=== PATIENT | female | born 1995 | race Caucasian/White ===

== ENCOUNTER → 2016-12-01 | Outpatient (CLI) | payer OTHER ==
[~2016-12-01] MED LIST: CLC100 PO; IRON INFUSION INJ; MACROBID PO; MCRB100 PO; MTR600X PO; OXYC-57 PO; PRENTAB26 PO; [UNRECOGNIZED DRUG - CODE] PO
== END | disposition home or self-care (01) ==
LOC: C.LABSPEC 17:34
PROVIDERS: ATTEND Obstetrics & Gynecology
DX: O09.33 Supervision of pregnancy with insufficient antenatal care, third trimester (principal)

== ENCOUNTER 2016-12-22 04:54 | Inpatient (IN) | payer OTHER ==
--- NOTE | 2016-12-19 10:35 | PAT Medication Instructions ---
Service Date Dec 19, 2016. Current Home Medication List [Iron Infusion], 1 DOSE INJ WEEKLY [Macrobid], 1 TAB PO BID Medication Instructions For Your Scheduled Surgery - Take the following medications the morning of surgery with a sip of water OTHERWISE NOTHING TO EAT OR DRINK AFTER MIDNIGHT: [Macrobid], 1 TAB PO BID - Take the following medications as scheduled the night before surgery: [Macrobid], 1 TAB PO BID If you have any questions please call us at [phone] (Ekta Alex PA-C ) or [phone] or [phone]
[2016-12-19 11:40] LABS: BASO % 0.2 %; BASO ABS # 0.03 K/uL (0-0.2); EOS % 0.6 %; HEMATOCRIT 34.7 % (37-47); IG% 1.3 %; LYMPH % 20.7 %; LYMPH ABS # 3.18 K/uL (1.2-3.4); MEAN CELL VOLUME 74.6 fL (80-100); MEAN CORPUSCULAR HEMOGLOBIN 23.4 pg (25-34); MEAN CORPUSCULAR HGB CONC 31.4 g/dl (32-36); MEAN PLATELET VOLUME 8.6 fL (7.4-10.4); NEUT % 68.2 %; PLATELET COUNT 332 K/uL (130-400); RED BLOOD COUNT 4.65 M/uL (4.2-5.4); WHITE BLOOD COUNT 15.39 K/uL (4.8-10.8)
[2016-12-19 11:47] LABS: URINE APPEARANCE CLEAR (CLEAR); URINE BILIRUBIN NEG (NEG); URINE COLOR YELLOW; URINE EPITHELIAL CELL AUTO >30 /lpf (0-5); URINE NITRITE NEG (NEG); URINE PH 6.5 (4.5-7.5); URINE SPECIFIC GRAVITY 1.022 (1.000-1.030); UROBILINOGEN NEG (NEG)
[2016-12-19 11:51] LABS: MANUAL MICROSCOPIC REQUIRED? NO; REVIEW REQ? NO
[2016-12-19 12:18] LABS: ANISOCYTOSIS PRESENT; COMPLETE YES; MICROCYTOSIS PRESENT
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
[~2016-12-22] VITALS: Ht 152.4 cm; Wt 77.3 kg
[2016-12-22] VITALS (14 sets, daily range): BP systolic 94–115; BP diastolic 61–75; PULSE 68–94; TEMP 36.6–36.7; O2SAT 96–99; Ht 152.4 cm; Wt 77.3 kg
[~2016-12-22 04:54] MED LIST changes: -CLC100 PO; -MCRB100 PO; -MTR600X PO; -OXYC-57 PO; -PRENTAB26 PO; -[UNRECOGNIZED DRUG - CODE] PO
[2016-12-22] MEDS ORDERED: LACTATED RINGER'S 1000ML 1,000 ML IV ONE (05:00)
[2016-12-22] MEDS ORDERED: CEFAZOLIN IV 2,000 MG in DEXTROSE 5% 50ML 50 ML IV SCH (06:00)
[2016-12-22] MEDS ORDERED: CITRIC ACID/SODIUM CITRATE 15 ML UDC PO SCH (06:00)
[2016-12-22] MEDS ORDERED: PRENTAB26 PO (06:00)
[2016-12-22] MEDS ORDERED: LACTATED RINGER'S 1000ML 1,000 ML IV SCH (06:00)
[2016-12-22 06:13] LABS: BENZODIAZEPINE, URINE NEG (NEG); COCAINE,URINE NEG (NEG); PHENCYCLIDINE, URINE NEG (NEG)
--- NOTE | 2016-12-22 08:57 | History & Physical Bridge Note ---
H&P Re-Evaluation Bridge Note: I have examined the patient, reviewed the History & Physical and in the interval since the performance of the History & Physical I have noted the following changes of clinical significance: No changes noted
[2016-12-22] MEDS ORDERED: PHENYLEPHRINE HCL INJ 10 MG/ML VIAL ONE (09:27)
[2016-12-22] MEDS ORDERED: FENTANYL CITRATE INJ 50 MCG/1 ML 2 ML VIAL ONE (09:27)
[2016-12-22] MEDS ORDERED: OXYTOCIN INJ 10 UNITS/ML VIAL ONE ×2 (09:27→10:09)
[2016-12-22] MEDS ORDERED: MoRPHine SULFATE PF 1 MG/ML 10 ML AMP/VIAL ONE (09:27)
[2016-12-22] MEDS ORDERED: NALBUPHINE HCL INJ 10 MG/ML AMP IV PRN (10:15)
[2016-12-22] MEDS ORDERED: NALOXONE HCL INJ 1 MG in SODIUM CHLORIDE 0.9% 1000ML 1,000 ML IV PRN (10:15)
[2016-12-22] MEDS ORDERED: NO NARCOTICS OR SEDATIVES SCH (10:15)
[2016-12-22] MEDS ORDERED: ONDANSETRON INJ 2 MG/ML 2 ML VIAL IV PRN (10:15)
[2016-12-22] MEDS ORDERED: LACTATED RINGER'S 1000ML 500 ML IV PRN (10:15)
[2016-12-22] MEDS ORDERED: SODIUM CHLORIDE 0.9% 1000ML 1,000 ML IV PRN (10:15)
[2016-12-22] MEDS ORDERED: MoRPHine SULFATE 2 MG/ML CARP IV PRN (10:15)
[2016-12-22] MEDS ORDERED: NALOXONE HCL INJ 0.08 MG in SYRINGE 1.8 ML IV PRN (10:15)
[2016-12-22] MEDS ORDERED: EpHEDrine SULFATE INJ 50 MG/ML AMP IV PRN (10:15)
[2016-12-22] MEDS ORDERED: MoRPHine SULFATE PF 1 MG/ML 10 ML AMP/VIAL EPI PRN (10:15)
[2016-12-22] MEDS ORDERED: KETOROLAC TROMETHAMINE 30 MG/ML VIAL IV. PRN (10:15)
[2016-12-22] MEDS ORDERED: NALOXONE HCL 0.4 MG/1 ML VIAL/CARP IV PRN (10:15)
[2016-12-22] MEDS ORDERED: OXYTOCIN INJ 20 UNITS in LACTATED RINGER'S 1000ML 1,000 ML IV SCH ×2 (10:35→21:15)
--- NOTE | 2016-12-22 10:39 | [facility] Post Operative Brief Note ---
Immediate Operative Summary Operative Date Dec 22, 2016. Pre-Operative Diagnosis IUP at 39 weeks hx c/s x2 desires sterilization Post-Operative Diagnosis same Procedure(s) Performed repeat LTCS Surgeon Konrad Financial Compliance Examiner Surgeon(s) Reza Rosario, PGY 1 Estimated Blood Loss 600cc Findings viable male infant, apgars 8/8. uterus was adhesed to the anterior abdominal wall. maria guadalupe very thin, omentum adhesed to fundus as well. ovs nl bilaterally, tubes nl. Fluids (cc crystalloids) 2500cc Specimens tubal segments Drains troncoso Anesthesia spinal Disposition L&D
[2016-12-22] MEDS ORDERED: DIPHTHERIA/TETANUS/PERTUSSIS 0.5 ML SYR/VIAL IM. ONE (10:45)
[2016-12-22] MEDS ORDERED: SENNA 8.6 MG TAB PO PRN (10:45)
[2016-12-22] MEDS ORDERED: MAGNESIUM HYDROXIDE SUSP 30 ML UDC PO PRN (10:45)
[2016-12-22] MEDS ORDERED: HYDROCORTISONE ACETATE 25 MG SUPP PR PRN (10:45)
[2016-12-22] MEDS ORDERED: LANOLIN OINT EXT PRN ×2 (10:45)
[2016-12-22] MEDS ORDERED: BENZOCAINE 20% AER SPR 82.5 GM CAN EXT PRN (10:45)
[2016-12-22] MEDS ORDERED: SUPERCREAM 0.870 % 15GM JAR EXT PRN (10:45)
--- NOTE | 2016-12-22 10:52 | Medical Student: [facility] ---
Immediate Operative Summary Operative Date Dec 22, 2016. Pre-Operative Diagnosis IUP [id number]. 2 prior C-sections. Desires BTL Post-Operative Diagnosis Same Procedure(s) Performed Low transverse Bilateral tubal ligation Surgeon Dr. Silvestre [employer] Driver Surgeon(s) Dr. Rosario Estimated Blood Loss 600cc Findings Viable male . Uterus adhesed to the anterior abdominal wall. Normal ovaries and fallopian tubes. Fluids (cc crystalloids) 2500cc Specimens Cord blood Placenta Bilateral fallopian tubes sections Drains Burks catheter Anesthesia Spinal Complication(s) None Disposition L&D
--- NOTE | 2016-12-22 11:23 | Anesthesiology Progress Note ---
Anesthesia Post Op Note Date & Time Dec 22, 2016 at 11:23 Notes Mental Status: alert / awake / arousable, participated in evaluation Pt Amnestic to Procedure: Yes Nausea / Vomiting: adequately controlled Pain: adequately controlled Airway Patency, RR, SpO2: stable & adequate BP & HR: stable & adequate Hydration State: stable & adequate Neuraxial Anesthesia: was administered, sensory block is resolving Anesthetic Complications: no major complications apparent
[2016-12-22] MEDS: DiphenhydrAMINE HCL 50 MG/ML VIAL IV PRN ×2 (11:43→23:53)
--- NOTE | 2016-12-22 17:21 | OPERATIVE REPORT ---
DATE OF OPERATION: 12/22/2016 PREOPERATIVE DIAGNOSES: 1. Intrauterine at 39 weeks. 2. History of previous section x2. 3. Desires permanent surgical sterilization. POSTOPERATIVE DIAGNOSES: Same. PROCEDURE: Primary repeat lower transverse section with modified bilateral Joseph tubal ligation. SURGEON: Dr. Shea Silvestre. ASSEMBLY INSTRUCTIONS WRITER: Reza Rosario, PGY1 and Lucía Hall, MS3. ANESTHESIA: Spinal. ESTIMATED BLOOD LOSS: 600 mL. FLUIDS: 2516. URINE OUTPUT: 75 mL of clear yellow urine drained from the bladder at the end of the procedure. INDICATIONS: Trisha is a 5, para 2-0-2-2, who presents at 39 weeks for repeat section. She also desires permanent surgical sterilization. FINDINGS: At the time of surgery revealed a uterus that was adhesed to the anterior abdominal wall. I actually made a hysterotomy incision with my thumb as the lower uterine segment was quite thin. Fluid was clear. Delivery of viable male infant with Apgars of 8 and 8. Ovaries and tubes were normal bilaterally. COMPLICATIONS: None. DRAINS: Burks. DISPOSITION: To recovery room in stable condition. DESCRIPTION OF PROCEDURE: The patient was taken to the operating room, where she was identified verbally and by bracelet. She was seated on the operating table, where a spinal anesthetic was placed by anesthesia. She was placed in dorsal supine position with a leftward tilt. A Burks catheter was placed sterilely. She was prepped and draped in normal sterile fashion. Timeout was held identifying correct patient and procedure, preoperative antibiotics and positioning. A Pfannenstiel skin incision was made with the knife and taken down to the underlying layer of fascia with the knife and the Bovie electrocautery. The fascia was incised with a knife in the midline and taken out laterally with scissors. The superior edge of the fascial incision was grasped, elevated and the underlying layer of rectus muscle was taken off bluntly and with scissors. This was done similarly on the inferior edge of the fascia. The rectus muscles should have diastasis and I thought that I was at the peritoneum and so, was in the process of trying to enter the peritoneum with my finger bluntly and then all of a sudden, there were amniotic membranes visible. On reassessment of the situation, it was found that I was actually at the uterus. It was adhesed to the anterior abdominal wall. I was able to find borders to identify the uterus. Below where the membranes were prolapsing through the lower uterine segment, I was able to make a bladder flap sharply with scissors and then this was pushed down and a bladder flap was created. Given that I was above the bladder, I extended the hysterotomy incision that I had made with my fingers. The amniotic fluid sac was ruptured for clear fluid and the baby was delivered through this atraumatically. There was no nuchal cord. The nose and mouth were bulb suctioned. The rest of the was then delivered without difficulty. The nose and mouth were again bulb suctioned. The cord was clamped and cut. The was handed off to waiting stone engraver for drying and attention. Cord blood and segment were obtained. Full evaluation of the hysterotomy incision was again performed. It was noted that the bladder was down well from the incision. The edges of the incision were readily visible and so, the hysterotomy incision was reapproximated with 0 Vicryl in a running locked layer. A sponge was then placed over this. Attention was then turned to where the uterine fundus was adhered to the anterior abdominal wall. I was able to place my finger underneath this very thick adhesion. There was no bowel or omentum involved with this and I was able to go through this very thick adhesion carefully with Bovie electrocautery until the uterine fundus was freed. I was then able to exteriorize the uterus. There were some slight adhesions of the omentum to the fundus, which were taken down using cautery. A bilateral modified [place] tubal ligation was then performed first on the right and then the left. In a similar fashion, a knuckle of tube was grasped with a Coni. A suture of 2-0 plain gut was placed around this knuckle of tube and tied and then another suture was placed below this. The knuckle of tube was removed using scissors. The base and tubes were cauterized on both sides similarly. Attention was then returned to my incision, which was hemostatic, but an area that had been denuded from taking out the adhesions of the uterus to the anterior abdominal wall was reapproximated with a [id number] suture of 0 Vicryl until hemostasis was assured of an entire area. The uterus was then reanteriorized. The tubal stumps were evaluated and the stitches were found to be intact. The incision was again evaluated and hemostasis was noted. A rectangled Interceed was then placed over this in the hopes of preventing readhesions of the uterus to the anterior abdominal wall. The muscles were then reapproximated with 0 Vicryl in several interrupted sutures. The fascia was reapproximated with 0 Vicryl meeting in the midline. The subcuticular tissue was copiously irrigated and bleeding was attended to with Bovie electrocautery and the skin was then closed with grady. All sponge, lap and needle counts were correct x2. The patient tolerated the procedure well and was taken to recovery room in stable condition. I attest to the content of the Intraoperative Record and any orders documented therein. Any exceptio ns are noted below.
[2016-12-22] MEDS: DOCUSATE SODIUM 100 MG CAP PO SCH (19:51)
[2016-12-22] MEDS: OXYTOCIN INJ 20 UNITS in LACTATED RINGER'S 1000ML 1,000 ML IV SCH (22:27)
[2016-12-23] VITALS (8 sets, daily range): BP systolic 97–115; BP diastolic 61–74; PULSE 86–98; TEMP 36.5–37; O2SAT 94–98
[2016-12-23] MEDS: OXYTOCIN INJ 20 UNITS in LACTATED RINGER'S 1000ML 1,000 ML IV SCH (02:27)
[2016-12-23] MEDS ORDERED: KETOROLAC TROMETHAMINE 30 MG/ML VIAL IV. PRN (03:30)
[2016-12-23] MEDS ORDERED: DiphenhydrAMINE HCL 50 MG/ML VIAL IV PRN (03:30)
[2016-12-23] MEDS ORDERED: ONDANSETRON INJ 2 MG/ML 2 ML VIAL IV PRN (03:30)
[2016-12-23] MEDS ORDERED: DC INTRASPINAL MORPHINE ONE (03:30)
[2016-12-23] MEDS: OXYCODONE/ACETAMINOPHEN 5-325 TAB PO PRN ×5 (04:08→23:15)
[2016-12-23] MEDS: IBUPROFEN 600 MG TAB PO PRN ×5 (04:08→23:14)
[2016-12-23 07:19] LABS: BASO % 0.1 %; BASO ABS # 0.02 K/uL (0-0.2); EOS % 1.1 %; HEMATOCRIT 31.9 % (37-47); IG% 0.4 %; LYMPH % 15.7 %; LYMPH ABS # 2.82 K/uL (1.2-3.4); MEAN CELL VOLUME 73.8 fL (80-100); MEAN CORPUSCULAR HEMOGLOBIN 23.8 pg (25-34); MEAN CORPUSCULAR HGB CONC 32.3 g/dl (32-36); MEAN PLATELET VOLUME 8.3 fL (7.4-10.4); MONO % 9.5 %; NEUT % 73.2 %; PLATELET COUNT 298 K/uL (130-400); RED BLOOD COUNT 4.32 M/uL (4.2-5.4); WHITE BLOOD COUNT 18.01 K/uL (4.8-10.8)
--- NOTE | 2016-12-23 07:24 | Progress Note ---
Subjective Dec 23, 2016. Subjective conversation w/ patient, physical exam Ambulation: ambulating normally Voiding: voiding difficulty (Troncoso removed overnight, no urination currently) Passing Gas: Yes Diet Tolerance: Regular Diet Lochia: Moderate (Given pitocin overnight and slowing down) Feeding Type: Breast Feeding Pain: Well controlled with Ibuprofen and Percocet Review of Systems Constitutional: No chills, No fever Respiratory: No cough, No shortness of breath Cardiac: No chest pain Breast: No breast pain Abdomen: No nausea, No pain, No vomiting Female : No dysuria Objective Vital Signs Date Time Temp Pulse Resp B/P Pulse Ox O2 Delivery O2 Flow Rate FiO2 12/23/16 03:40 37.0 98 16 115/72 97 Room Air 12/23/16 03:00 16 98 12/23/16 02:00 16 95 12/23/16 01:00 16 94 12/23/16 00:00 16 96 12/22/16 23:30 36.6 94 16 114/75 96 Room Air 12/22/16 23:30 96 Room Air 12/22/16 23:00 16 96 12/22/16 22:00 20 98 12/22/16 21:00 20 97 12/22/16 20:00 20 98 12/22/16 19:30 36.6 85 24 94/61 99 Room Air 12/22/16 19:00 16 99 12/22/16 18:00 20 99 12/22/16 17:00 18 98 12/22/16 16:00 36.6 82 18 107/67 96 Room Air 12/22/16 16:00 96 Room Air 12/22/16 16:00 18 96 12/22/16 15:00 16 99 12/22/16 14:00 16 97 12/22/16 14:00 36.7 82 16 115/71 97 Room Air 12/22/16 13:30 16 99 12/22/16 13:00 36.7 68 18 105/72 97 Room Air 12/22/16 13:00 99 Room Air Physical Exam General Appearance: WELL-APPEARING, WD/WN, NO APPARENT DISTRESS Respiratory/Chest: lungs clear, no respiratory distress Cardiovascular: regular rate, rhythm, no gallop, no murmur Abdomen: non tender, soft Fundus: Firm, Relation to Umbilicus (1cm below umbilicus) Incision Description: Clean, Dry & Intact Extremities: no calf tenderness Laboratory Results Last 24 Hours Test 12/23/16 07:07 White Blood Count 18.01 K/uL Red Blood Count 4.32 M/uL Hemoglobin 10.3 g/dL Hematocrit 31.9 % Mean Corpuscular Volume 73.8 fL Mean Corpuscular Hemoglobin 23.8 pg Mean Corpuscular Hemoglobin Concent 32.3 g/dl Platelet Count 298 K/uL Mean Platelet Volume 8.3 fL Neutrophils (%) (Auto) 73.2 % Lymphocytes (%) (Auto) 15.7 % Monocytes (%) (Auto) 9.5 % Eosinophils (%) (Auto) 1.1 % Basophils (%) (Auto) 0.1 % Neutrophils # (Auto) 13.20 K/uL Lymphocytes # (Auto) 2.82 K/uL Monocytes # (Auto) 1.71 K/uL Eosinophils # (Auto) 0.19 K/uL Basophils # (Auto) 0.02 K/uL RDW Standard Deviation 72.3 fL RDW Coefficient of Variation 27.4 % Immature Granulocyte % (Auto) 0.4 % Immature Granulocyte # (Auto) 0.07 K/uL Medications Current Inpatient Medications Medications (Trade) Dose Ordered Sig/Myron Route Start Time Stop Time Status Last Admin Dose Admin Ketorolac Tromethamine (Toradol Inj) 30 mg Q6H PRN IV. 12/23/16 03:30 12/27/16 03:29 Oxycodone/ Acetaminophen (Percocet 5-325mg Tab) 1 tab Q4H PRN PO 12/23/16 03:30 01/06/17 03:29 Oxycodone/ Acetaminophen (Percocet 5-325mg Tab) 2 tab Q4H PRN PO 12/23/16 03:30 01/06/17 03:29 12/23/16 04:08 2 TAB Ibuprofen (Motrin Tab) 600 mg Q4H PRN PO 12/22/16 10:45 01/21/17 10:44 12/23/16 04:08 600 MG Ondansetron HCl (Zofran Inj) 4 mg Q4H PRN IV 12/23/16 03:30 01/22/17 03:29 Prenat Multivit/ [place]/Iron/Folic Ac ( Vitamin Tab) 1 tab DAILY PO 12/23/16 08:00 01/22/17 07:59 Bisacodyl (Dulcolax Tab) 5 mg HS ONCE PO 12/23/16 22:00 12/23/16 22:01 Bisacodyl (Dulcolax Supp) 10 mg PRN PRN AL 12/24/16 10:45 01/23/17 10:44 Docusate Sodium (coLACE CAP) 100 mg BID PO 12/22/16 20:00 01/21/17 19:59 12/22/16 19:51 100 MG Magnesium Hydroxide (Milk Of Magnesia Susp) 30 ml HS PRN PO 12/22/16 10:45 01/21/17 10:44 Ferrous Sulfate (Feosol Tab) 325 mg DAILY PO 12/23/16 08:00 01/22/17 07:59 Cocaine HCl (Supercream 0.870% Cr) BID PRN EXT 12/22/16 10:45 01/05/17 10:44 Lanolin (Lanolin Oint) PRN PRN EXT 12/22/16 10:45 01/21/17 10:44 Hydrocortisone Acetate (Anusol Hc Supp) 25 mg BID PRN AL 12/22/16 10:45 01/21/17 10:44 Benzocaine (Dermoplast Aero Spr) 1 appln PRN PRN EXT 12/22/16 10:45 01/21/17 10:44 Diphenhydramine HCl (Benadryl Cap) 25 mg QID PRN PO 12/23/16 03:30 01/22/17 03:29 Diphenhydramine HCl (Benadryl Inj) 25 mg QID PRN IV 12/23/16 03:30 01/22/17 03:29 Senna 17.2 mg 17.2 mg HS PRN PO 12/22/16 10:45 01/21/17 10:44 Oxytocin/Lactated Ringer's (Pitocin Inj/Lr 1000ml) 1,002 ml @ 125 mls/hr Q8H1M IV 12/22/16 21:15 01/21/17 21:14 12/23/16 02:27 125 MLS/HR Assessment and Plan Problem List Medical Problems: (1) Contusion of multiple sites Status: Acute (2) Fall Status: Acute (3) Sprain of wrist, left Status: Acute Post-Op Day#: 1 Continue Routine Care: - Vital Signs reviewed and WNL (temp max 37.0) - Blood Type: A+, GBS+ , Rubella Immune - Patient doing well clinically - Encourage Ambulation today - Tolerating PO Diet - Ensure urinating today after troncoso removal - Pain well controlled with Ibuprofen and Percocet Resident Physician Supervision Note: I interviewed and examined the patient. Discussed with Dr. Rosario and agree with findings and plan as documented in the note. Any exceptions or clarifications are listed here: Doing well. Routine care. Documented By: Shea Silvestre
--- NOTE | 2016-12-23 07:27 | Medical Student: [facility] ---
Med Student DIRECTOR OF LITIGATION Progress Nt Date of Service Dec 23, 2016. Subjective conversation w/ patient, physical exam, chart review Ambulation: ambulating normally Voiding: no voiding problems (Catheter is out) Passing Gas: Yes Diet Tolerance: Regular Diet Lochia: Moderate (Had moderate to heavy vaginal bleeding yesterday. She was put on Pitoxin, and bleeding gets better.) Feeding Type: Breast Feeding (also bottle feeding) Pain: controlled with ibuprofen and percocet Review of Systems Constitutional: No chills, No fever Respiratory: No shortness of breath Cardiac: No chest pain Abdomen: No nausea, No pain, No vomiting Female : + see HPI Objective Vital Signs Date Time Temp Pulse Resp B/P Pulse Ox O2 Delivery O2 Flow Rate FiO2 12/23/16 03:40 37.0 98 16 115/72 97 Room Air 12/23/16 03:00 16 98 12/23/16 02:00 16 95 12/23/16 01:00 16 94 12/23/16 00:00 16 96 12/22/16 23:30 36.6 94 16 114/75 96 Room Air 12/22/16 23:30 96 Room Air 12/22/16 23:00 16 96 12/22/16 22:00 20 98 12/22/16 21:00 20 97 12/22/16 20:00 20 98 12/22/16 19:30 36.6 85 24 94/61 99 Room Air 12/22/16 19:00 16 99 12/22/16 18:00 20 99 12/22/16 17:00 18 98 12/22/16 16:00 36.6 82 18 107/67 96 Room Air 12/22/16 16:00 96 Room Air 12/22/16 16:00 18 96 12/22/16 15:00 16 99 12/22/16 14:00 16 97 12/22/16 14:00 36.7 82 16 115/71 97 Room Air 12/22/16 13:30 16 99 12/22/16 13:00 36.7 68 18 105/72 97 Room Air 12/22/16 13:00 99 Room Air Physical Exam General Appearance: WELL-APPEARING, WD/WN Respiratory/Chest: lungs clear, normal breath sounds Cardiovascular: regular rate, rhythm, no murmur Abdomen: non tender, soft Fundus: Firm, Relation to Umbilicus (2cm below umbilicus) Incision Description: Clean, Dry & Intact Extremities: non-tender, no calf tenderness Laboratory Results Last 24 Hours Test 12/23/16 07:07 White Blood Count 18.01 K/uL Red Blood Count 4.32 M/uL Hemoglobin 10.3 g/dL Hematocrit 31.9 % Mean Corpuscular Volume 73.8 fL Mean Corpuscular Hemoglobin 23.8 pg Mean Corpuscular Hemoglobin Concent 32.3 g/dl Platelet Count 298 K/uL Mean Platelet Volume 8.3 fL Neutrophils (%) (Auto) 73.2 % Lymphocytes (%) (Auto) 15.7 % Monocytes (%) (Auto) 9.5 % Eosinophils (%) (Auto) 1.1 % Basophils (%) (Auto) 0.1 % Neutrophils # (Auto) 13.20 K/uL Lymphocytes # (Auto) 2.82 K/uL Monocytes # (Auto) 1.71 K/uL Eosinophils # (Auto) 0.19 K/uL Basophils # (Auto) 0.02 K/uL RDW Standard Deviation 72.3 fL RDW Coefficient of Variation 27.4 % Immature Granulocyte % (Auto) 0.4 % Immature Granulocyte # (Auto) 0.07 K/uL Medications Current Inpatient Medications Medications (Trade) Dose Ordered Sig/Myron Route Start Time Stop Time Status Last Admin Dose Admin Ketorolac Tromethamine (Toradol Inj) 30 mg Q6H PRN IV. 12/23/16 03:30 12/27/16 03:29 Oxycodone/ Acetaminophen (Percocet 5-325mg Tab) 1 tab Q4H PRN PO 12/23/16 03:30 01/06/17 03:29 Oxycodone/ Acetaminophen (Percocet 5-325mg Tab) 2 tab Q4H PRN PO 12/23/16 03:30 01/06/17 03:29 12/23/16 04:08 2 TAB Ibuprofen (Motrin Tab) 600 mg Q4H PRN PO 12/22/16 10:45 01/21/17 10:44 12/23/16 04:08 600 MG Ondansetron HCl (Zofran Inj) 4 mg Q4H PRN IV 12/23/16 03:30 01/22/17 03:29 Prenat Multivit/ [place]/Iron/Folic Ac ( Vitamin Tab) 1 tab DAILY PO 12/23/16 08:00 01/22/17 07:59 Bisacodyl (Dulcolax Tab) 5 mg HS ONCE PO 12/23/16 22:00 12/23/16 22:01 Bisacodyl (Dulcolax Supp) 10 mg PRN PRN SD 12/24/16 10:45 01/23/17 10:44 Docusate Sodium (coLACE CAP) 100 mg BID PO 12/22/16 20:00 01/21/17 19:59 12/22/16 19:51 100 MG Magnesium Hydroxide (Milk Of Magnesia Susp) 30 ml HS PRN PO 12/22/16 10:45 01/21/17 10:44 Ferrous Sulfate (Feosol Tab) 325 mg DAILY PO 12/23/16 08:00 01/22/17 07:59 Cocaine HCl (Supercream 0.870% Cr) BID PRN EXT 12/22/16 10:45 01/05/17 10:44 Lanolin (Lanolin Oint) PRN PRN EXT 12/22/16 10:45 01/21/17 10:44 Hydrocortisone Acetate (Anusol Hc Supp) 25 mg BID PRN SD 12/22/16 10:45 01/21/17 10:44 Benzocaine (Dermoplast Aero Spr) 1 appln PRN PRN EXT 12/22/16 10:45 01/21/17 10:44 Diphenhydramine HCl (Benadryl Cap) 25 mg QID PRN PO 12/23/16 03:30 01/22/17 03:29 Diphenhydramine HCl (Benadryl Inj) 25 mg QID PRN IV 12/23/16 03:30 01/22/17 03:29 Senna 17.2 mg 17.2 mg HS PRN PO 12/22/16 10:45 01/21/17 10:44 Oxytocin/Lactated Ringer's (Pitocin Inj/Lr 1000ml) 1,002 ml @ 125 mls/hr Q8H1M IV 12/22/16 21:15 01/21/17 21:14 12/23/16 02:27 125 MLS/HR Assessment and Plan Post-Op Day Number: 1 Continue Routine Care: 21 year-old female had and BTL yesterday. Vitals are WNL. Labs pending Blood type A+, GBS+, Rubella immune Plan: Bandage to incisional site removed. Pain controlled with medications Encourage ambulation Tolerate regular diet Monitor vaginal bleed
[2016-12-23 07:45] LABS: ANISOCYTOSIS PRESENT; COMPLETE YES; ECHINOCYTES 1+; HYPERSEGMENTED POLYS 1+; POLYCHROMASIA 1+
[2016-12-23] MEDS: DOCUSATE SODIUM 100 MG CAP PO SCH ×2 (08:45→20:43)
[2016-12-23] MEDS: FERROUS SULFATE 325 MG TAB PO SCH (08:45)
[2016-12-23] MEDS: PRENATAL VITAMIN TAB PO SCH (08:45)
[2016-12-23] MEDS ORDERED: BISACODYL 5 MG TABEC PO ONE (22:00)
[2016-12-24] MEDS: IBUPROFEN 600 MG TAB PO PRN ×2 (03:49→08:32)
[2016-12-24] MEDS: OXYCODONE/ACETAMINOPHEN 5-325 TAB PO PRN ×2 (03:50→08:32)
[2016-12-24] MEDS ORDERED: OXYC-57 PO (06:41)
[2016-12-24] MEDS ORDERED: MTR600X PO (06:41)
[2016-12-24] MEDS ORDERED: CLC100 PO (06:41)
--- NOTE | 2016-12-24 06:42 | Discharge Instructions ---
Discharge Instructions Admission Reason for Admission: Previous Section Discharge Discharge Diagnosis / Problem: recovery from repeat section Discharge Goals Goal(s): Routine recovery after Medications Continue Dispensed Medications: lansinoh Activity Recommendations Activity Limitations: per Instructions/Follow-up section . Instructions / Follow-Up Instructions / Follow-Up ACTIVITY RECOMMENDATIONS: * Gradual return to full activity over the next 2-3 weeks. * No lifting - nothing heavier than baby over the next 2-3 weeks. * Do not engage in vigorous exercise, sexual activity or sports until cleared by your physician. * Do not drive or operate any motorized equipment until cleared by your physician. * You may shower/bathe daily. MEDICATIONS: For discomfort or pain, you may use Acetaminophen (Tylenol), Ibuprofen (Advil), or Naproxen (Aleve) following the package directions. For constipation you may use Colace following the package directions. BREAST CARE: If you are not breast feeding: * Wear a supportive bra 24 hours a day for one to two weeks. * Avoid stimulating your breasts and nipples as much as possible during the first few weeks after delivery. * When taking a shower, have the warm water hit your back, not breasts. * When your breasts feel full, apply ice packs. Usually three to four times a day helps ease the discomfort. * Take a mild pain medication (Tylenol / Motrin) when you are uncomfortable. If breast feeding: * Use breast milk to lubricate nipples. Lansinoh cream may be used for sore nipples. You do not need to remove cream prior to breast feeding. If using a different brand of cream, check the label for directions regarding removal of cream prior to nursing. * Wear a supportive bra. * If having problems with breasts or breast feeding, call a search engine optimization consultant or your health care provider. SPECIAL CARE INSTRUCTIONS: When you are discharged from the hospital, it is important for you to follow the instructions listed below: * During the first week at home, you should be able to care for yourself and your baby. In addition, the usual light household activities are encouraged. * Limit your activities to the way you feel. Do not try to clean the house or move furniture. Be sensible. * If you actively engage in sports and have done so up until the time of your delivery, you may resume these activities as soon as you feel able. This may take up to one month or even longer. Use good judgment. * Continue to take your vitamins for at least six weeks after the of your baby. * Your diet need not be limited unless you were on a special diet before your delivery. Breast-feeding mothers need around 2500 calories per day and at least 64-80 ounces of fluid per day (8 to 10 glasses). * You should eat foods from the four major food groups. Crash diets or fad diets are to be avoided. Eating lean meats, fresh fruits and vegetables, low-fat dairy products, high fiber foods and a regular exercise program, will help you get back to your pre- weight without putting your health at risk. * Constipation is sometimes a problem after delivery. Take a mild laxative as needed. If breast feeding, Milk of Magnesia is acceptable to use. You may use a suppository or Fleets enema. * A daily shower or tub bath is suggested. Wash incision daily with warm soapy water and pat dry. It doesn't need to be covered unless drainage is present. * A bloody vaginal discharge will usually continue until around four weeks . A small amount of bleeding may continue for as long as six weeks. Vaginal discharge changes from the bright red bleeding after delivery to pink then brownish and finally yellowish-pink before becoming white and disappearing. * Bleeding may increase with activity. Your first period may come in 4-8 weeks. If you are breast feeding, your period may be delayed even longer. * Carlton (sex) can begin whenever both you and your partner feel comfortable and do not have any form of genital infection. It is recommended that you wait at least six weeks for internal and external healing to occur. If you have questions, please talk to your health care practitioner. A condom should be used to prevent infection and . * Foreplay, gentle intercourse and lubrication is very important the first several times to prevent pain. A water-based lubricant such as K-Y jelly or Astroglide may be used. * If you have RH negative blood and your baby is RH positive, you will receive RHOGAM by injection prior to discharge. The nurse will give you a card to keep with you that has the date and place that you received RHOGAM after delivery. * During your care, you had a Rubella screen done to check for the presence of rubella antibodies in your blood. If your test was negative, you will receive a Rubella vaccine prior to discharge. This vaccine may cause a fever, soreness at the injection site and flu-like symptoms. If these symptoms persist, notify your health care practitioner. is not advised for one month after a Rubella vaccine. * Verbalizes understanding of car seat law as reviewed with patient nursing. * Car Seat hand-out given and reviewed with patient by nursing. * Shaken baby information reviewed with patient by nursing. Call you doctor if: * Heavy bleeding (saturating several pads an hour) or passing clots the size of your fist. * A fever >101 degrees F (38.3 degrees C) on two occasions four hours apart and /or chills. * Unusual pain in the pelvic or vaginal areas. * Call the doctor for any increased redness, drainage or swelling around the incision and any pain unrelieved by prescribed pain medication. * "Baby Blues" lasting longer than two weeks. If you have any questions or concerns, call your health care practitioner at . FOLLOW UP VISIT: * Please call the office at to schedule a 6 week examination. It is important you keep this appointment. It is important for you to make arrangements for either yearly or twice yearly check-ups thereafter. Current Hospital Diet Patient's current hospital diet: Regular OB Diet Discharge Diet Recommended Diet: Regular OB Diet Procedures Procedures Performed: CAESAREAN SECTION FOR LIVE MALE INFANT AT 1000 BILATERAL TUBAL LIGATION Pending Studies Studies pending at discharge: no Medical Emergencies . Who to Call and When: Medical Emergencies: If at any time you feel your situation is an emergency, please call 121 immediately. . Non-Emergent Contact Non-Emergency issues call your: Electro Winning Operator . . "Provider Documentation" section prepared by Korin Salazar. VTE Core Measure Inpt VTE Proph given/why not?: Treatment not indicated
--- NOTE | 2016-12-24 06:51 | Progress Note ---
Subjective Dec 24, 2016. Subjective conversation w/ patient, physical exam Ambulation: ambulating normally Voiding: no voiding problems (Catheter is out) Passing Gas: Yes Lochia: Small Feeding Type: Breast Feeding Pain: No pain reported this morning Review of Systems Constitutional: No chills, No fever Respiratory: No cough, No shortness of breath Cardiac: No chest pain Breast: No breast pain Abdomen: No nausea, No pain, No vomiting Female : No dysuria Objective Vital Signs Date Time Temp Pulse Resp B/P Pulse Ox O2 Delivery O2 Flow Rate FiO2 12/23/16 23:55 36.6 93 18 97/61 97 Room Air 12/23/16 23:55 97 Room Air 12/23/16 16:00 36.5 16 113/70 97 Room Air 12/23/16 16:00 97 Room Air 12/23/16 07:30 36.6 86 20 105/74 97 Room Air 12/23/16 07:30 97 Room Air Physical Exam General Appearance: WELL-APPEARING, WD/WN, NO APPARENT DISTRESS Respiratory/Chest: lungs clear, normal breath sounds Cardiovascular: regular rate, rhythm, no gallop, no murmur Abdomen: non tender, soft Fundus: Firm, Relation to Umbilicus (1cm below) Incision Description: Clean, Dry & Intact Extremities: no calf tenderness Laboratory Results Last 24 Hours Test 12/23/16 07:07 White Blood Count 18.01 K/uL Red Blood Count 4.32 M/uL Hemoglobin 10.3 g/dL Hematocrit 31.9 % Mean Corpuscular Volume 73.8 fL Mean Corpuscular Hemoglobin 23.8 pg Mean Corpuscular Hemoglobin Concent 32.3 g/dl Platelet Count 298 K/uL Mean Platelet Volume 8.3 fL Neutrophils (%) (Auto) 73.2 % Lymphocytes (%) (Auto) 15.7 % Monocytes (%) (Auto) 9.5 % Eosinophils (%) (Auto) 1.1 % Basophils (%) (Auto) 0.1 % Neutrophils # (Auto) 13.20 K/uL Lymphocytes # (Auto) 2.82 K/uL Monocytes # (Auto) 1.71 K/uL Eosinophils # (Auto) 0.19 K/uL Basophils # (Auto) 0.02 K/uL RDW Standard Deviation 72.3 fL RDW Coefficient of Variation 27.4 % Immature Granulocyte % (Auto) 0.4 % Immature Granulocyte # (Auto) 0.07 K/uL Neutrophils % (Manual) % Lymphocytes % (Manual) % Monocytes % (Manual) % Eosinophils % (Manual) % Myelocytes % % Neutrophils # (Manual) K/uL Total Absolute Neutrophils K/uL Lymphocytes # (Manual) K/uL Total Absolute Lymphocytes K/uL Monocytes # (Manual) K/uL Eosinophils # (Manual) K/uL Myelocytes # K/uL Hypersegmented Polys 1+ Polychromasia 1+ Anisocytosis PRESENT Echinocytes 1+ Medications Current Inpatient Medications Medications (Trade) Dose Ordered Sig/Myron Route Start Time Stop Time Status Last Admin Dose Admin Ketorolac Tromethamine (Toradol Inj) 30 mg Q6H PRN IV. 12/23/16 03:30 12/27/16 03:29 Oxycodone/ Acetaminophen (Percocet 5-325mg Tab) 1 tab Q4H PRN PO 12/23/16 03:30 01/06/17 03:29 12/23/16 12:29 1 TAB Oxycodone/ Acetaminophen (Percocet 5-325mg Tab) 2 tab Q4H PRN PO 12/23/16 03:30 01/06/17 03:29 12/24/16 03:50 2 TAB Ibuprofen (Motrin Tab) 600 mg Q4H PRN PO 12/22/16 10:45 01/21/17 10:44 12/24/16 03:49 600 MG Ondansetron HCl (Zofran Inj) 4 mg Q4H PRN IV 12/23/16 03:30 01/22/17 03:29 Prenat Multivit/ Airport Operations Duty Manager/Iron/Folic Ac ( Vitamin Tab) 1 tab DAILY PO 12/23/16 08:00 01/22/17 07:59 12/23/16 08:45 1 TAB Bisacodyl (Dulcolax Supp) 10 mg PRN PRN LA 12/24/16 10:45 01/23/17 10:44 Docusate Sodium (coLACE CAP) 100 mg BID PO 12/22/16 20:00 01/21/17 19:59 12/23/16 20:43 100 MG Magnesium Hydroxide (Milk Of Magnesia Susp) 30 ml HS PRN PO 12/22/16 10:45 01/21/17 10:44 Ferrous Sulfate (Feosol Tab) 325 mg DAILY PO 12/23/16 08:00 01/22/17 07:59 12/23/16 08:45 325 MG Cocaine HCl (Supercream 0.870% Cr) BID PRN EXT 12/22/16 10:45 01/05/17 10:44 Lanolin (Lanolin Oint) PRN PRN EXT 12/22/16 10:45 01/21/17 10:44 Hydrocortisone Acetate (Anusol Hc Supp) 25 mg BID PRN LA 12/22/16 10:45 01/21/17 10:44 Benzocaine (Dermoplast Aero Spr) 1 appln PRN PRN EXT 12/22/16 10:45 01/21/17 10:44 Diphenhydramine HCl (Benadryl Cap) 25 mg QID PRN PO 12/23/16 03:30 01/22/17 03:29 12/23/16 21:28 25 MG Diphenhydramine HCl (Benadryl Inj) 25 mg QID PRN IV 12/23/16 03:30 01/22/17 03:29 Senna 17.2 mg 17.2 mg HS PRN PO 12/22/16 10:45 01/21/17 10:44 Oxytocin/Lactated Ringer's (Pitocin Inj/Lr 1000ml) 1,002 ml @ 125 mls/hr Q8H1M IV 12/22/16 21:15 01/21/17 21:14 12/23/16 02:27 125 MLS/HR Assessment and Plan Problem List Medical Problems: (1) Contusion of multiple sites Status: Acute (2) Fall Status: Acute (3) Sprain of wrist, left Status: Acute Post-Op Day#: 2 Continue Routine Care: Resident Physician Supervision Note: I interviewed and examined the patient. Discussed with Dr. Rosario and agree with findings and plan as documented in the note. Any exceptions or clarifications are listed here: [None] Documented By: Korin Salazar - Vital Signs reviewed and WNL (temp max 37.0) - Blood Type: A+, GBS+ , Rubella Immune - Patient doing well clinically - Encourage Ambulation today - Tolerating PO Diet - Pain well controlled this morning - Discharge today
[2016-12-24 07:08] LABS: HEMATOCRIT 28.8 % (37-47)
[2016-12-24] MEDS: PRENATAL VITAMIN TAB PO SCH (08:31)
[2016-12-24] MEDS: FERROUS SULFATE 325 MG TAB PO SCH (08:31)
[2016-12-24 08:40] VITALS: BP 109/68; PULSE 103; TEMP 36.6
[2016-12-24 09:00] VITALS: BP_DIAS 68; PULSE 103; TEMP 36.6
[2016-12-24] MEDS ORDERED: BISACODYL 10 MG SUPP PR PRN (10:45)
--- NOTE | 2017-01-01 02:18 | DISCHARGE SUMMARY ---
ADMIT DIAGNOSES: 1. Intrauterine at 39 and 1+ weeks. 2. History of previous section x2. 3. Desire for permanent surgical sterilization. DISCHARGE DIAGNOSES: Same. PROCEDURE: 1. Repeat lower transverse section. 2. Bilateral modified [place] tubal ligation. HISTORY: The patient is a 21-year-old -[place] female, 5, para 2-0-2-2, with an intrauterine at 39+ weeks, who presents for repeat section and tubal ligation. Her history is significant for miscarriage in 2011 and 2012, and then in March of 2012, she had a section that was emergent for meconium and nuchal cord x1 for a 7-pound 3-ounce female. In June of 2015, she had a repeat section for a 6-pound baby secondary to the development of what sounds like preeclampsia. These were both in the [place]. The patient desires repeat section. Additionally, the patient would like a tubal ligation. She was counseled regarding her options for control including long-term reversible contraceptive options. She was educated that these are as effective as sterilization. She understands a very high risk for regret but desires to proceed anyway. For the rest of the patient's detailed history and physical, please see her dictated history and physical. ASSESSMENT: Trisha is a 21-year-old -[place] female, 5, para 2-0-2-2, with a history of previous section x2, who presents at 39 weeks for repeat delivery and sterilization. HOSPITAL COURSE: The patient underwent a repeat lower transverse section to deliver a viable male infant, Apgars of 8 and 8. The uterus was adhesed to the anterior abdominal wall and the lower uterine segment was very thin and I actually went through it with my finger. The omentum was adhesed to the fundus as well. The ovaries were normal bilaterally as were the tubes. I was able to exteriorize the uterus after doing lysis of adhesions and a bilateral modified [place] tubal ligation was performed. The patient's postoperative course was uncomplicated. She tolerated a regular diet, ambulated without difficulty, voided after the removal of her [place] catheter, had her pain well controlled with oral pain medications, passed gas and was . She was discharged home on postoperative day 2. Her discharge H\T\H on 12/24/2016 was 9.1 and 28.8. She will return in 6 weeks for postoperative check and did receive a prescription for Percocet for pain management.
== END 2016-12-24 09:10 | disposition home or self-care (01) | DRG 766 ==
LOC: C.LD 04:54 → EDSTATUS 07:30 → C.OBG 13:08
PROVIDERS: ADMIT Obstetrics & Gynecology; ATTEND Obstetrics & Gynecology
PROC: 0UL70ZZ Occlusion of Bilateral Fallopian Tubes, Open Approach (ICD-10-PCS; 2016-12-22)
PROC: 10D00Z1 Extraction of Products of Conception, Low, Open Approach (ICD-10-PCS; principal; 2016-12-22 07:30)
DX: O34.211 Maternal care for low transverse scar from previous cesarean delivery (principal); Z30.2 Encounter for sterilization; Z3A.39 39 weeks gestation of pregnancy; O99.824 Streptococcus B carrier state complicating childbirth; Z37.0 Single live birth